=== PATIENT | female | born 1965 | race Caucasian/White ===

== ENCOUNTER 2017-04-20 18:46 | Emergency (ER) | payer OTHER ==
[2017-04-20 18:52] VITALS: BP 196/107; PULSE 82; TEMP 98.5; BMI 27.1
--- NOTE | 2017-04-20 19:15 | PDOC ---
History of Present Illness - History of Present Illness Initial Comments: 04/20/17 20:55 52 y/o F with a PMHx of HTN presents to the ED with left calf pain. Patient reports it is worsened with walking and when her leg hangs off the edge of her seat or bed. She recently began OCPs prescribed by her PROPERTY CONSULTANT for ovarian cysts. Since then, she has felt calf tightness and pain. She denies recent travel. Denies leg swelling. Denies chest pain, SOB. Denies any other complaints. <Monalisa Perez - Last Filed: 04/20/17 21:21> <Maryuri Sifuentes - Last Filed: 04/21/17 03:55> - General Chief Complaint: Pain, Acute Stated Complaint: left calf pain Time Seen by Provider: 04/20/17 19:11 Past History <Monalisa Perez - Last Filed: 04/20/17 21:21> - Past Medical History HTN: Yes - Suicide/Smoking/Psychosocial Hx Smoking History: Former smoker Have you smoked in the past 12 months: No Information on smoking cessation initiated: No Hx Alcohol Use: Yes Drug/Substance Use Hx: No Substance Use Type: Alcohol <Maryuri Sifuentes - Last Filed: 04/21/17 03:55> - Past Medical History Allergies/Adverse Reactions: Allergies Allergy/AdvReac Type Severity Reaction Status Date / Time No Known Allergies Allergy Verified 04/20/17 18:47 Home Medications: Ambulatory Orders Losartan Potassium 100 mg PO DAILY 02/05/14 Norethindrone-E.estradiol-Iron [T[place]tulla 1 mg-20 Mcg Capsule] 1 each PO DAILY Review of Systems - Review of Systems Constitutional: No: Chills, Fever Cardiac (ROS): No: Chest Pain, Edema, Palpitations ABD/GI: No: Diarrhea, Nausea, Vomiting Musculoskeletal: Yes: Other (left calf pain). No: Back Pain, Neck Pain Integumentary: No: Erythema Neurological: No: Numbness, Tingling <Monalisa Perez - Last Filed: 04/20/17 21:21> *Physical Exam - Vital Signs Last Vital Signs Temp Pulse Resp BP Pulse Ox 98.5 F 82 16 196/107 99 04/20/17 18:47 04/20/17 18:47 04/20/17 18:47 04/20/17 18:47 04/20/17 18:47 - Physical Exam Comments: 04/20/17 20:57 GENERAL: The patient is awake, alert, and fully oriented, in no acute distress. HEAD: Normal with no signs of trauma. EYES: Pupils equal, round and reactive to light, extraocular movements intact, sclera anicteric, conjunctiva clear with no pallor. ENT: Ears normal, nares patent, oropharynx clear without exudates. Moist mucous membranes. NECK: Normal range of motion, supple without lymphadenopathy, JVD, or masses. LUNGS: Breath sounds equal, clear to auscultation bilaterally. No wheeze/ crackles. HEART: Regular rate and rhythm, normal S1 and S2 without murmur or rub. ABDOMEN: Soft/nontender/nondistended. BS wnl. No guarding or rebound. No palpable masses. No hepatosplenomegaly. EXTREMITIES: Moderate tenderness to palpation of mid posterior lower leg without masses or cords. No obvious edema. Normal range of motion. No clubbing or cyanosis. No erythema. NEUROLOGICAL: Cranial nerves II through XII grossly intact. Normal speech, normal gait. PSYCH: Normal mood, normal affect. SKIN: Warm, Dry, normal turgor, no rashes or lesions noted. <Monalisa Perez - Last Filed: 04/20/17 21:21> - Vital Signs Last Vital Signs Temp Pulse Resp BP Pulse Ox 98.5 F 82 16 196/107 99 04/20/17 18:47 04/20/17 18:47 04/20/17 18:47 04/20/17 18:47 04/20/17 18:47 <Maryuri Sifuentes - Last Filed: 04/21/17 03:55> ED Treatment Course - RADIOLOGY Radiograph Interpretation: 04/20/17 21:21 Duplex Vascular US - Left Leg reported by Dr. Tae Mobley Impression: There is no evidence of deep venous thrombosis in the left lower extremity. <Monalisa Perez - Last Filed: 04/20/17 21:21> Progress Note - Progress Note Progress Note: Documentation has been prepared under my direction and personally reviewed by me in its entirety. I attest that this documented accurately reflects all work, treatment, procedures and medical decision making performed by me. <Maryuri Sifuentes - Last Filed: 04/21/17 03:55> Medical Decision Making - Medical Decision Making As noted above, this 52-year-old woman presents with 1 day history of left calf pain. She had recently been started on oral contraceptives for ovarian cyst pain by her director of securities and real estate. She was advised by her director of securities and real estate to be seen in the emergency room with any lower extremity pain or swelling. No other risk factors for thromboembolic disease. Exam as noted: Patient has left calf tenderness without edema. Doppler duplex ultrasound negative for DVT in the left lower extremity. Patient discharged with instructions to use nonsteroidal anti-inflammatories as needed for her left lower leg pain. She also should maintain hydration by drinking plenty of water. She should also keep her electrolyte balance optimized by eating plenty of/vegetables in her diet. She should follow-up with her general doctor and return to ER if she has any further pain or swelling in her lower extremities. <Maryuri Sifuentes - Last Filed: 04/21/17 03:55> *DC/Admit/Observation/Transfer - Attestations Scribe Attestion: 04/20/17 20:58 Documentation prepared by Monalisa Perez, acting as biomedical electronics technician for Maryuri Sifuentes MD. <Monalisa Perez - Last Filed: 04/20/17 21:21> <Maryuri Sifuentes - Last Filed: 04/21/17 03:55> Diagnosis at time of Disposition: Muscle strain, lower leg Qualifiers: Encounter type: initial encounter Laterality: left Qualified Code(s): S86.912A - Strain of unspecified muscle(s) and tendon(s) at lower leg level, left leg, initial encounter - Discharge Dispostion Disposition: HOME Condition at time of disposition: Stable - Patient Instructions Printed Discharge Instructions: DI for Calf Muscle Strain Additional Instructions: Drink plenty of water Eat plenty of fruits/vegetables Motrin/Aleve/Tylenol as needed for pain Follow-up with your general doctor within the next 2-3 days Return to ER if you have any further leg pain/swelling
== END 2017-04-20 21:28 | disposition home or self-care (01) ==
LOC: FER 18:46
DX: S86.912A Strain of unspecified muscle(s) and tendon(s) at lower leg level, left leg, initial encounter (principal); X58.XXXA Exposure to other specified factors, initial encounter; Y93.89 Activity, other specified; Y92.9 Unspecified place or not applicable; I10 Essential (primary) hypertension; Z87.891 Personal history of nicotine dependence
CPT/HCPCS: 93971-TC; 99282-25

== ENCOUNTER 2022-02-26 17:15 | Emergency (ER) | payer OTHER ==
[2022-02-26 17:56] VITALS: TEMP 98.7; BMI 27.4
[2022-02-26 18:47] VITALS: BP 150/105; PULSE 82; RESP 15
== END 2022-02-26 19:07 | disposition home or self-care (01) ==
LOC: FER 17:15
DX: R51.9 Headache, unspecified (principal)
CPT/HCPCS: 70450-TC; 99284-25